=== PATIENT | female | born 1975 | race African-American/Black ===

== ENCOUNTER 2020-02-18 14:26 | Inpatient (IN) | payer MEDICAID, OTHER ==
[~2020-02-18] VITALS: Ht 160 cm; Wt 54.4 kg
[2020-02-18] MEDS ORDERED: KETOROLAC 30MG/ML VIAL IV STA (14:44)
[2020-02-18] MEDS ORDERED: SODIUM CHLORIDE 0.9% 1,000 ML IV ONE (14:44)
[2020-02-18 15:36] LABS: HEMATOCRIT. 44.5 % (36.0-48.0); HEMOGLOBIN. 14.9 g/dL (12.0-16.0); MEAN CORPUSCULAR HEMOGLOBIN 27.2 pg (28.0-32.0); MEAN CORPUSCULAR VOLUME 81.3 fL (81.0-99.0); PLATELET 383 x1000/uL (130-400); RED BLOOD CELL COUNT 5.48 mill/uL (4.2-5.4); RED CELL DISTRIBUTION WIDTH 16.3 % (11.6-14.6)
[2020-02-18 15:42] LABS: CHLORIDE 97 mEq/L (98-107)
[2020-02-18 15:45] LABS: HCG SCREEN NEGATIVE
[2020-02-18 16:53] LABS: PLATELET ESTIMATE NORMAL
[2020-02-18] MEDS ORDERED: IOHEXOL-350 100 ML BOTTLE ONE (16:54)
[2020-02-18 16:56] LABS: CLARITY URINE CLOUDY (CLEAR); COLOR URINE DARK YELLOW (YELLOW); KETONES URINE 3+ (NEGATIVE); LEUKOCYTE ESTERASE URINE 1+ (NEGATIVE); NITRITE URINE POSITIVE (NEGATIVE); OCCULT BLOOD URINE NEGATIVE (NEGATIVE); PH URINE 5.5 (4.5-8.0); PROTEIN URINE 1+ (NEGATIVE); SPECIFIC GRAVITY URINE 1.046 (1.005-1.030)
[2020-02-18] MEDS ORDERED: MORPHINE SULFATE 4 MG/ML CPJ (NOT FOR IM USE) IV STA (18:12)
[2020-02-18] MEDS ORDERED: ONDANSETRON HCL 4MG/2ML INJ IV STA (18:12)
[2020-02-18] MEDS ORDERED: CEFTRIAXONE 1 G PREMIX 50 ML IV ONE (18:30)
[2020-02-18 18:33] LABS: PARTIAL THROMBOPLASTIN TIME 29.2 sec (23.4-31.0); PROTHROMBIN TIME 10.7 sec (9.6-11.0)
[2020-02-18] MEDS ORDERED: IPRATROPIUM/ALBUTEROL 0.5-3(2.5)MG/3ML NEB NEB PRN (22:30)
[2020-02-18] MEDS ORDERED: ONDANSETRON HCL 4MG/2ML INJ IV PRN (22:30)
[2020-02-19] VITALS (8 sets, daily range): BP systolic 116–146; BP diastolic 76–89
[2020-02-19 00:45] LABS: CHLORIDE 101 mEq/L (98-107)
[2020-02-19] MEDS: SODIUM CHLORIDE 0.9% 1,000 ML IV SCH ×2 (02:55→20:09)
[2020-02-19] MEDS: MORPHINE SULFATE 2 MG/ML CPJ (NOT FOR IM USE) IV PRN ×2 (02:55→07:21)
[2020-02-19 10:56] LABS: BASOPHILS % 0.4 % (0.0-2.0); EOSINOPHILS % 1.2 % (0.0-5.0); HEMATOCRIT. 40.8 % (36.0-48.0); HEMOGLOBIN. 13.4 g/dL (12.0-16.0); LYMPHOCYTES % 12.1 % (20.0-50.0); MEAN CORPUSCULAR HEMOGLOBIN 27.3 pg (28.0-32.0); MEAN CORPUSCULAR VOLUME 83.2 fL (81.0-99.0); MEAN PLATELET VOLUME 7.9 fl (7.4-10.4); MONOCYTES % 9.6 % (2.0-8.0); NEUTROPHILS % 76.7 % (40.0-76.0); PLATELET 301 x1000/uL (130-400); RED BLOOD CELL COUNT 4.91 mill/uL (4.2-5.4); RED CELL DISTRIBUTION WIDTH 16.4 % (11.6-14.6)
[2020-02-19] MEDS ORDERED: HYDRALAZINE 20MG/ML VIAL IV PRN (11:00)
[2020-02-19 11:03] LABS: *BARBITURATES SCREEN URINE NEGATIVE (NEGATIVE); *BENZODIAZEPINES SCREEN URINE NEGATIVE (NEGATIVE); *COCAINE SCREEN URINE NEGATIVE (NEGATIVE)
[2020-02-19 11:04] LABS: METHADONE URINE SCREEN NEGATIVE (NEGATIVE); OPIATES URINE SCREEN NEGATIVE (NEGATIVE); PHENCYCLIDINE URINE SCREEN NEGATIVE (NEGATIVE)
[2020-02-19 11:10] LABS: *AMPHETAMINES SCREEN URINE PRESUMTIVE POSITIVE (NEGATIVE); CANNABINOID URINE SCREEN PRESUMTIVE POSITIVE (NEGATIVE)
[2020-02-19 11:10] LABS: LDL CHOLESTEROL 93 mg/dL (5-100)
[2020-02-19 11:11] LABS: CREATINE KINASE 46 IU/L (26-192)
[2020-02-19 11:12] LABS: CREATINE KINASE MB FRACTION < 1.0 ng/mL (0.5-3.6)
[2020-02-19 11:14] LABS: HDL CHOLESTEROL 31 mg/dL (40-59)
[2020-02-19 16:43] LABS: CREATINE KINASE 47 IU/L (26-192)
[2020-02-19 16:44] LABS: CREATINE KINASE MB FRACTION < 1.0 ng/mL (0.5-3.6)
[2020-02-19] MEDS ORDERED: CEFTRIAXONE 1 G PREMIX 50 ML IV SCH ×2 (18:00)
[2020-02-20] VITALS (8 sets, daily range): BP systolic 132–159; BP diastolic 70–83
[2020-02-20] MEDS: SODIUM CHLORIDE 0.9% 1,000 ML IV SCH (11:35)
== END 2020-02-20 15:30 | disposition home or self-care (01) | DRG 247 ==
LOC: ER 14:26 → 3WST 18:14 → ENRESERV 02-19 10:07 → 3WST 02-20 04:13
PROVIDERS: ADMIT Internal Medicine; ATTEND Internal Medicine
PROC: 0D9670Z Drainage of Stomach with Drainage Device, Via Natural or Artificial Opening (ICD-10-PCS; principal; 2020-02-18)
DX: K56.609 Unspecified intestinal obstruction, unspecified as to partial versus complete obstruction (principal); E87.1 Hypo-osmolality and hyponatremia; E87.8 Other disorders of electrolyte and fluid balance, not elsewhere classified; R74.0 Nonspecific elevation of levels of transaminase and lactic acid dehydrogenase [LDH]; I10 Essential (primary) hypertension; I16.0 Hypertensive urgency; N39.0 Urinary tract infection, site not specified; Z90.710 Acquired absence of both cervix and uterus; Z71.51 Drug abuse counseling and surveillance of drug abuser
CPT/HCPCS: 36415; 71045; 74018; 74177; 80048; 80053; 80061; 80305; 81003; 82550; 82553; 83735; 84443; 84484; 84703; 85025; 86850; 86900; 87077; 87186; 93005; 93970; 99285; J0696; J1885; J2270; J2405; J7030; Q9967